=== PATIENT | female | born 1965 | race Caucasian/White ===

== ENCOUNTER 2018-01-19 12:19 | Emergency (ER) | payer SELFPAY ==
--- NOTE | 2018-01-19 12:29 | Emergency Department Record ---
History of Present Illness - General Chief Complaint: Knee injury Stated Complaint: RT KNEE PAIN Time Seen by Provider: 01/19/18 12:21 Source: Patient Mode of Arrival: Ambulatory Limitations: No limitations - History of Present Illness Initial Comments: 52 yo female presents with right knee pain. She has a history right knee pain that frequently. This week she was on her feet more that usual. She has worsened right knee pain medially. Mild swelling. No warmth. No fever. No prior surgery. -: Days(s) Injury: Knee: Right Type of Injury: Hyperextension Place: Work Severity: Moderate Improves With: Rest Worsens With: Weight bearing Context: Walking Associated Symptoms: Able to partially bear weight - Related Data Previous Rx's Medication Instructions Recorded Hydrocodone/APAP 5/325Mg [Aurora 1 each PO Q6H #10 tab 01/19/18 5Mg/325Mg] Naproxen [Naprosyn] 500 mg PO BID #25 tablet 01/19/18 Allergies Allergy/AdvReac Type Severity Reaction Status Date / Time Penicillins Allergy PT UNSURE Verified 01/19/18 12:30 OF REACTION sulfamethoxazole Allergy HIVES Verified 01/19/18 12:30 [From Bactrim] trimethoprim [From Bactrim] Allergy HIVES Verified 01/19/18 12:30 Review of Systems Constitutional: Denies: Chills, Fever, Malaise, Weakness Eyes: Denies: Eye discharge ENT: Denies: Congestion, Throat pain Respiratory: Denies: Cough, Dyspnea, Hemoptysis, Stridor, Wheezes Cardiovascular: Denies: Chest pain, Palpitations, Syncope Endocrine: Denies: Fatigue, Polydipsia, Polyuria Gastrointestinal: Denies: Abdominal pain, Diarrhea, Nausea, Vomiting Genitourinary: Denies: Dysuria, Urgency Musculoskeletal: Reports: As per HPI, Arthralgia Skin: Denies: Bruising, Change in color, Rash Neurological: Denies: Headache, Numbness, Vertigo, Weakness Psychiatric: Denies: Anxiety Hematological/Lymphatic: Denies: Blood Clots, Easy bleeding, Easy bruising, Swollen glands Physical Exam - General General Appearance: Alert, Oriented x3, Cooperative, No acute distress Limitations: No limitations - Head Head exam: Atraumatic, Normal inspection - Eye Eye exam: Normal appearance. negative: Conjunctival injection, Scleral icterus - ENT ENT exam: Normal exam Ear exam: Normal external inspection Nasal Exam: Normal inspection Mouth exam: Normal external inspection - Neck Neck exam: Normal inspection - Respiratory Respiratory exam: Normal lung sounds bilaterally. negative: Respiratory distress - Cardiovascular Cardiovascular Exam: Regular rate, Normal rhythm, Normal heart sounds - GI/Abdominal GI/Abdominal exam: Soft. negative: Tenderness - Rectal Rectal exam: Deferred - exam: Deferred - Extremities Extremities exam: Full ROM, Joint swelling (mild), Normal capillary refill, Tenderness, Other (No calf tenderness, no achilles tenderness, tenderness is lateral knee, intact with anterior and posterior drawer test, patella intact, quads intact). negative: Calf tenderness, Pedal edema - Back Back exam: Denies: CVA tenderness (R), CVA tenderness (L) - Neurological Neurological exam: Alert, Normal gait, Oriented X3 - Psychiatric Psychiatric exam: Normal affect, Normal mood - Skin Skin exam: Dry, Intact, Normal color, Warm Course - Reevaluation(s) Reevaluation #1: 01/19/18 13:29 XR read as patellar spurring with small effusion. Knee immobilizer ordered She has crutches I recommend RICE treatment and a PCP Referral Disposition Disposition: Discharge Clinical Impression: Arthritis of knee, right Disposition: Home, Self-Care Condition: (1) Good Instructions: Swollen Knee Joint (ED) Additional Instructions: Ice the knee, use the brace and crutches Call for a new family doctor this week You may need further referrals or tests if not better Prescriptions: Hydrocodone/APAP 5/325Mg [Aurora 5Mg/325Mg] 1 each PO Q6H #10 tab Naproxen [Naprosyn] 500 mg PO BID #25 tablet Referrals: HUSSEIN CROFT [MEDICAL DOCTOR] - Forms: Patient Portal Access Time of Disposition: 13:30 Quality - Quality Measures Quality Measures: N/A - Blood Pressure Screening Does Patient Have Any of the Following: No Blood Pressure Classification: Normal BP Reading Systolic Measurement: 119 Diastolic Measurement: 74 Screening for High Blood Pressure: < Normal BP, F/U Not Required > [G8783] Pre-Hypertensive Follow-up Interventions: Referral to alternative/primary care provider.
[2018-01-19] MEDS ORDERED: IBUPROFEN 600 MG TABLET PO ONE (13:13)
--- NOTE | 2018-01-21 09:50 | RADIOLOGY REPORT ---
EXAM: RIGHT KNEE HISTORY: RIGHT KNEE PAIN FOR FOUR WEEKS, NO KNOWN INJURY. TECHNIQUE: Four views of the right knee were obtained. Comparison: None. Encounter: Not applicable. FINDINGS: There may be a joint effusion present. Some spurring along the superior margin of the patella anteriorly likely related to the quadriceps tendon insertion site. The right knee appears otherwise negative. No fracture , dislocation, or destructive lesion identified. IMPRESSION: 1. MILD PATELLAR SPURRING ANTERIORLY. 2. POSSIBLE JOINT EFFUSION. 3. THE RIGHT KNEE IS OTHERWISE NEGATIVE. JOB NUMBER: [id number] MTDD
== END 2018-01-19 13:54 | disposition home or self-care (01) ==
LOC: ER 12:19
DX: G89.11 Acute pain due to trauma (principal); M25.561 Pain in right knee; M17.11 Unilateral primary osteoarthritis, right knee; X50.0XXA Overexertion from strenuous movement or load, initial encounter; Y99.0 Civilian activity done for income or pay
CPT/HCPCS: 99283